=== PATIENT | male | born 1990 | race Caucasian/White ===

== ENCOUNTER 2016-05-25 16:27 | Emergency (ER) | payer OTHER | END 2016-05-25 17:49 | disposition home or self-care (01) | LOC: ER1 16:27 | DX: S61.412A Laceration without foreign body of left hand, initial encounter (principal); F17.290 Nicotine dependence, other tobacco product, uncomplicated; W45.8XXA Other foreign body or object entering through skin, initial encounter; Y92.096 Garden or yard of other non-institutional residence as the place of occurrence of the external cause | CPT/HCPCS: 12001; 90471; 90715; 99283 ==